=== PATIENT | female | born 1990 | race Caucasian/White ===

== ENCOUNTER 2022-07-11 18:22 | Emergency (ER) | payer OTHER, BC ==
[2022-07-11] MEDS: Ketorolac 30 MG/ML SDV IM ONE (19:38)
[2022-07-11] MEDS: Take Home: Cyclobenzaprine 10 MG Tab, 4 Tab Pack PO ONE (19:48)
== END 2022-07-11 20:17 | disposition home or self-care (01) ==
LOC: CC.ED 18:22
DX: S39.012A Strain of muscle, fascia and tendon of lower back, initial encounter (principal); F17.210 Nicotine dependence, cigarettes, uncomplicated; X50.0XXA Overexertion from strenuous movement or load, initial encounter; Y99.0 Civilian activity done for income or pay
CPT/HCPCS: 72100; 96372; 99283; A9270-GY; J1885